=== PATIENT | female | born 1995 | race Caucasian/White ===

== ENCOUNTER → 2018-10-26 | Emergency (ER) | payer OTHER ==
[~2018-10-26] VITALS: Ht 121.9 cm; Wt 72.6 kg
[~2018-10-26] MED LIST: DITROPAN XL5 MG; PENICILLIN V P500 MG; SULFAMETHOXAZO1 EACH; SUPRAX400 M1
== END | disposition left against medical advice (07) ==
LOC: ER 20:34
DX: N39.0 Urinary tract infection, site not specified (principal); R10.2 Pelvic and perineal pain